=== PATIENT | male | born 1990 | race American Indian/Alaskan Native ===

== ENCOUNTER 2017-06-25 22:44 | Emergency (ER) | payer MEDICAID ==
[2017-06-25 22:52] VITALS: BP 103/66
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
== END 2017-06-26 03:05 | disposition home or self-care (01) ==
LOC: ED 22:44
DX: S00.93XA Contusion of unspecified part of head, initial encounter (principal); W22.8XXA Striking against or struck by other objects, initial encounter; Y93.01 Activity, walking, marching and hiking; Y99.8 Other external cause status; Y92.89 Other specified places as the place of occurrence of the external cause
CPT/HCPCS: 99282

== ENCOUNTER 2017-06-26 10:50 | Emergency (ER) | payer MEDICAID ==
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
== END 2017-06-26 11:18 | disposition home or self-care (01) ==
LOC: ED 10:50
DX: R46.89 Other symptoms and signs involving appearance and behavior (principal)
CPT/HCPCS: 99282

== ENCOUNTER 2017-06-26 21:48 | Emergency (ER) | payer MEDICAID | END 2017-06-26 21:49 | disposition left against medical advice (07) | LOC: ED 21:48 | DX: H53.8 Other visual disturbances (principal); Z53.21 Procedure and treatment not carried out due to patient leaving prior to being seen by health care provider ==

== ENCOUNTER 2017-07-01 23:49 | Emergency (ER) | payer MEDICAID ==
[2017-07-02 07:30] VITALS: BP 107/68
== END 2017-07-02 23:50 | disposition left against medical advice (07) ==
LOC: ED 23:49
DX: R44.3 Hallucinations, unspecified (principal); Z53.21 Procedure and treatment not carried out due to patient leaving prior to being seen by health care provider

== ENCOUNTER 2017-07-03 01:02 | Emergency (ER) | payer MEDICAID | END 2017-07-03 01:03 | disposition left against medical advice (07) | LOC: ED 01:02 | DX: Z00.8 Encounter for other general examination (principal); Z53.21 Procedure and treatment not carried out due to patient leaving prior to being seen by health care provider ==

== ENCOUNTER 2017-07-05 01:09 | Emergency (ER) | payer MEDICAID ==
[2017-07-05 03:09] VITALS: BP 117/81
== END 2017-07-05 07:41 | disposition left against medical advice (07) ==
LOC: ED 01:09
DX: M79.642 Pain in left hand (principal); Z53.21 Procedure and treatment not carried out due to patient leaving prior to being seen by health care provider

== ENCOUNTER 2017-07-07 22:48 | Emergency (ER) | payer MEDICAID ==
[2017-07-07 23:17] VITALS: BP 121/77
--- NOTE | 2017-07-08 01:38 | Emergency Department Report ---
ED Back Pain/Injury HPI - General Chief Complaint: Back Pain/Injury Stated Complaint: BACK PAIN Time Seen by Provider: 07/08/17 01:32 Source: patient Limitations: No Limitations - History of Present Illness Initial Comments: Patient is a 26-year-old -Nigerian male states he strained his back last night bilaterally lower quickly in bed pain is 4/10 10 spasm right lateral back there is no numbness no tingling no paresthesia pain is reproducible by palpation and movement there is no swelling no ecchymosis patient states "its just strained" there is no loss of decrease in bowel or bladder function MD Complaint: back injury Onset/Timin -: days(s) Similar Symptoms Previously: Yes Place: home Radiation: none Severity: mild Severity scale (0 -10): 2 Quality: aching, other ("soreness") Consistency: intermittent Improves With: none Worsens With: movement Context: turning/twisting Associated Symptoms: denies: confusion, weakness, chest pain, numbness, difficulty walking, cough, difficulty urinating, incontinence, fever/chills, constipation, headaches, abdominal pain, loss of appetite, malaise, nausea/ vomiting, rash, seizure, shortness of breath, syncope - Related Data Previous Rx's Medication Instructions Recorded Last Taken Type Ibuprofen [Motrin] 600 mg PO Q8H PRN #20 tablet 06/26/17 Unknown Rx Cyclobenzaprine [Flexeril] 10 mg PO BID PRN #20 tablet 07/08/17 Unknown Rx Menthol/Camphor [[place] 1 applic TP TID PRN #1 tube 07/08/17 Unknown Rx Ointment] Naproxen [Naprosyn] 500 mg PO BID PRN #30 tablet 07/08/17 Unknown Rx Allergies Allergy/AdvReac Type Severity Reaction Status Date / Time No Known Allergies Allergy Unverified 06/25/17 22:50 ED Review of Systems ROS: Stated complaint: BACK PAIN Other details as noted in HPI Constitutional: denies: chills, fever Eyes: denies: eye pain, eye discharge, vision change ENT: denies: ear pain, throat pain Respiratory: denies: cough, shortness of breath, wheezing Cardiovascular: denies: chest pain, palpitations Endocrine: no symptoms reported Gastrointestinal: denies: abdominal pain, nausea, diarrhea Genitourinary: denies: urgency, dysuria Musculoskeletal: back pain. denies: joint swelling, arthralgia, myalgia Skin: denies: rash, lesions Neurological: denies: headache, weakness, numbness, paresthesias, confusion, abnormal gait, vertigo Psychiatric: denies: anxiety, depression Hematological/Lymphatic: denies: easy bleeding, easy bruising ED Past Medical Hx - Past Medical History Previous Medical History?: Yes Hx Psychiatric Treatment: Yes - Surgical History Past Surgical History?: No - Social History Smoking Status: Never Smoker Substance Use Type: None - Medications Home Medications: Home Medications Medication Instructions Recorded Confirmed Last Taken Type Ibuprofen [Motrin] 600 mg PO Q8H PRN #20 tablet 06/26/17 Unknown Rx Cyclobenzaprine [Flexeril] 10 mg PO BID PRN #20 tablet 07/08/17 Unknown Rx Menthol/Camphor [[place] 1 applic TP TID PRN #1 tube 07/08/17 Unknown Rx Ointment] Naproxen [Naprosyn] 500 mg PO BID PRN #30 tablet 07/08/17 Unknown Rx ED Physical Exam - General Limitations: No Limitations General appearance: alert, in no apparent distress - Head Head exam: Present: atraumatic, normocephalic - Eye Eye exam: Present: normal appearance - ENT ENT exam: Present: mucous membranes moist - Neck Neck exam: Present: normal inspection - Respiratory Respiratory exam: Present: normal lung sounds bilaterally. Absent: respiratory distress, wheezes, stridor, chest wall tenderness - Cardiovascular Cardiovascular Exam: Present: regular rate, normal rhythm, normal heart sounds. Absent: systolic murmur, diastolic murmur, rubs, gallop - GI/Abdominal GI/Abdominal exam: Present: soft, normal bowel sounds. Absent: distended, tenderness, guarding, rebound, rigid, organomegaly, mass, bruit, pulsatile mass , hernia - Rectal Rectal exam: Present: deferred - Extremities Exam Extremities exam: Present: normal inspection, full ROM, normal capillary refill. Absent: tenderness, pedal edema, joint swelling, calf tenderness - Back Exam Back exam: Present: normal inspection, tenderness, muscle spasm. Absent: CVA tenderness (R), CVA tenderness (L), paraspinal tenderness, vertebral tenderness , rash noted - Expanded Back Exam Expanded Back exam: Absent: saddle anesthesia Back exam: Negative Straight Leg Raising: Left, Right - Neurological Exam Neurological exam: Present: alert, oriented X3, CN II-XII intact, normal gait, reflexes normal - Expanded Neurological Exam Expanded Patient oriented to: Present: person, place, time Speech: Present: fluid speech Cranial nerves: EOM's Intact: Normal, Gag Reflex: Normal, Tongue Deviation: Normal, Nystagmus: Normal, Facial Sensation: Normal Cerebellar function: Finger to Nose: Normal, Heel to Carver: Normal, Romberg: Normal Sensory exam: Upper Extremity Light Touch: Normal, Upper Extremity Temperature: Normal, UE 2 Point Discrimination: Normal, Lower Extremity Light Touch: Normal, Lower Extremity Temperature: Normal, LE 2 Point Discrimination: Normal Motor strength exam: RUE: 5, LUE: 5, RLE: 5, LLE: 5 DTR: bicep (R): 2+, bicep (L): 2+, tricep (R): 2+, tricep (L): 2+, knee (R): 2+ , knee (L): 2+, ankle (R): 2+, ankle (L): 2+ Best Eye Response ([place]): (4) open spontaneously Best Motor Response (Dony): (6) obeys commands Best Verbal Response ([place]): (5) oriented Dony Total: 15 - Psychiatric Psychiatric exam: Present: normal affect, normal mood - Skin Skin exam: Present: warm, dry, intact, normal color. Absent: rash ED Course Vital Signs 07/07/17 23:13 Temperature 98.4 F Pulse Rate 75 Respiratory 17 Rate Blood Pressure 121/77 O2 Sat by Pulse 99 Oximetry ED Medical Decision Making - Medical Decision Making there is no posterior vertebral point tenderness no swelling no deformity no ecchymosis , mild right lateral thoracic pain to deep palpation plan: nsaid muscler relaxant moist heat therapy follow up with pcp in 2-3 days pt verbalized agreement and understanding of same. Critical care attestation.: If time is entered above; I have spent that time in minutes in the direct care of this critically ill patient, excluding procedure time. ED Disposition Clinical Impression: Thoracic myofascial strain Qualifiers: Encounter type: initial encounter Qualified Code(s): S29.019A - Strain of muscle and tendon of unspecified wall of thorax, initial encounter Disposition: TO HOME OR SELFCARE Is pt being admited?: No Does the pt Need Aspirin: No Condition: Good Instructions: Muscle Strain (ED) Prescriptions: Cyclobenzaprine [Flexeril] 10 mg PO BID PRN #20 tablet PRN Reason: Muscle Spasm Menthol/Camphor [[place] Ointment] 1 applic TP TID PRN #1 tube PRN Reason: Pain Naproxen [Naprosyn] 500 mg PO BID PRN #30 tablet PRN Reason: Pain , Severe (7-10) Referrals: [facility] [Outside] - 3-5 Days Forms: Work/School Release Form(ED) Time of Disposition: 01:40
== END 2017-07-08 01:51 | disposition home or self-care (01) ==
LOC: ED 22:48
DX: S29.019A Strain of muscle and tendon of unspecified wall of thorax, initial encounter (principal); X50.1XXA Overexertion from prolonged static or awkward postures, initial encounter; Y93.89 Activity, other specified; Y99.8 Other external cause status; Y92.009 Unspecified place in unspecified non-institutional (private) residence as the place of occurrence of the external cause
CPT/HCPCS: 99282

== ENCOUNTER 2017-07-08 21:35 | Emergency (ER) | payer MEDICAID ==
[2017-07-08 22:01] VITALS: BP 107/59
== END 2017-07-09 00:50 | disposition left against medical advice (07) ==
LOC: ED 21:35
DX: R50.9 Fever, unspecified (principal); Z53.21 Procedure and treatment not carried out due to patient leaving prior to being seen by health care provider

== ENCOUNTER 2017-07-12 03:30 | Emergency (ER) | payer MEDICAID | END 2017-07-12 04:00 | disposition left against medical advice (07) | LOC: ED 03:30 | DX: Z00.8 Encounter for other general examination (principal); Z53.21 Procedure and treatment not carried out due to patient leaving prior to being seen by health care provider ==

== ENCOUNTER 2017-07-12 07:38 | Emergency (ER) | payer MEDICAID ==
[2017-07-12 07:51] VITALS: BP 114/67
[2017-07-12 08:12] LABS: Basophils % (Auto) 0.5 % (0.0-1.8); Eosinophils # (Auto) 0.3 K/mm3 (0.0-0.4); Eosinophils % (Auto) 4.3 % (0.0-4.3); Hematocrit 44.2 % (35.5-45.6); Hemoglobin 14.9 gm/dl (11.8-15.2); Lymphocytes # (Auto) 2.7 K/mm3 (1.2-5.4); Lymphocytes % (Auto) 36.1 % (13.4-35.0); Mean Corpuscular HGB Conc 34 % (32-34); Mean Corpuscular Hemoglobin 33 pg (28-32); Mean Corpuscular Volume 97 fl (84-94); Monocytes # (Auto) 0.6 K/mm3 (0.0-0.8); Monocytes % (Auto) 8.5 % (0.0-7.3); Platelet Count 170 K/mm3 (140-440); Red Blood Count 4.55 M/mm3 (3.65-5.03); Red Cell Distribution Width 13.5 % (13.2-15.2)
[2017-07-12 08:30] LABS: BUN/Creatinine Ratio 13; Blood Urea Nitrogen 10 mg/dL (9-20); Calcium 9.3 mg/dL (8.4-10.2); Hemolysis Index 25
[2017-07-12 13:28] LABS: Bilirubin,Urine NEG (Negative); Blood,Urine NEG (Negative); Color,Urine Yellow (Yellow); Mucus,Urine FEW /HPF; Protein,Urine <15 mg/dL mg/dL (Negative)
--- NOTE | 2017-07-12 13:41 | Emergency Department Report ---
ED Psych HPI - General Chief Complaint: Psych Stated Complaint: MH EVAL Time Seen by Provider: 07/12/17 11:36 Source: patient, old records reviewed (recent and frequent ed visits) Mode of arrival: Ambulatory Limitations: No Limitations - History of Present Illness Initial Comments: 26-year-old male with a past medical history schizophrenia presents to the hospital complaining of auditory and visual hallucinations and mood swings. He denies physical pain. Denies suicidal or homicidal ideation. Noncompliant with medications 1 month. - Related Data Previous Rx's Medication Instructions Recorded Last Taken Type Ibuprofen [Motrin] 600 mg PO Q8H PRN #20 tablet 06/26/17 Unknown Rx Cyclobenzaprine [Flexeril] 10 mg PO BID PRN #20 tablet 07/08/17 Unknown Rx Menthol/Camphor [[place] [employer] 1 applic TP TID PRN #1 tube 07/08/17 Unknown Rx Ointment] Naproxen [Naprosyn] 500 mg PO BID PRN #30 tablet 07/08/17 Unknown Rx Allergies Allergy/AdvReac Type Severity Reaction Status Date / Time No Known Allergies Allergy Unverified 06/25/17 22:50 ED Review of Systems ROS: Stated complaint: MH EVAL Other details as noted in HPI Comment: All other systems reviewed and negative ED Past Medical Hx - Past Medical History Previous Medical History?: No Hx Psychiatric Treatment: Yes (psychosis) - Surgical History Past Surgical History?: No - Social History Smoking Status: Current Some Day Smoker - Medications Home Medications: Home Medications Medication Instructions Recorded Confirmed Last Taken Type Ibuprofen [Motrin] 600 mg PO Q8H PRN #20 tablet 06/26/17 Unknown Rx Cyclobenzaprine [Flexeril] 10 mg PO BID PRN #20 tablet 07/08/17 Unknown Rx Menthol/Camphor [[place] [employer] 1 applic TP TID PRN #1 tube 07/08/17 Unknown Rx Ointment] Naproxen [Naprosyn] 500 mg PO BID PRN #30 tablet 07/08/17 Unknown Rx ED Physical Exam - General Limitations: No Limitations - Other Other exam information: General: No limitations, patient is alert in no acute distress Head exam: Atraumatic, normocephalic Eyes exam: Normal appearance ENT: Moist mucous membrane, normal oropharynx Neck exam: Normal inspection, full range of motion, no meningismus nontender Respiratory exam: Clear to auscultation bilateral, no wheezes, rales, crackles Cardiovascular: Normal rate and rhythm, normal heart sounds Abdomen: Soft, nondistended, and nontender, with normal bowel sounds, no rebound, or guarding Extremity: Full range of motion normal inspection no deformity Back: Normal Inspection, full range of motion, no tenderness Neurologic: Alert, oriented x3, cranial nerves intact, no motor or sensory deficit Psychiatric: normal affect, normal mood Skin: Warm, dry, intact ED Course Vital Signs 07/12/17 07:43 Temperature 97.9 F Pulse Rate 67 Respiratory 16 Rate Blood Pressure 114/67 Blood Pressure 114/67 [Right] O2 Sat by Pulse 94 Oximetry ED Medical Decision Making - Lab Data Result diagrams: 07/12/17 08:01 07/12/17 08:01 Lab Results 07/12/17 07/12/17 07/12/17 Range/Units 07:59 08:01 08:01 WBC (4.5-11.0) K/mm3 RBC (3.65-5.03) M/mm3 Hgb (11.8-15.2) gm/dl Hct (35.5-45.6) % MCV (84-94) fl MCH (28-32) pg MCHC (32-34) % RDW (13.2-15.2) % Plt Count (140-440) K/mm3 Lymph % (Auto) (13.4-35.0) % [place] % (Auto) (0.0-7.3) % Eos % (Auto) (0.0-4.3) % Baso % (Auto) (0.0-1.8) % Lymph # (1.2-5.4) K/mm3 [place] # (0.0-0.8) K/mm3 Eos # (0.0-0.4) K/mm3 Baso # (0.0-0.1) K/mm3 Seg Neutrophils % (40.0-70.0) % Seg Neutrophils # (1.8-7.7) K/mm3 Sodium 140 (137-145) mmol/L Potassium 4.4 (3.6-5.0) mmol/L Chloride 103.2 (98-107) mmol/L Carbon Dioxide 30 (22-30) mmol/L Anion Gap 11 mmol/L BUN 10 (9-20) mg/dL Creatinine 0.8 (0.8-1.5) mg/dL Estimated GFR > 60 ml/min BUN/Creatinine Ratio 13 % Glucose 100 (75-100) mg/dL Calcium 9.3 (8.4-10.2) mg/dL Urine Color (Yellow) Urine Turbidity (Clear) Urine pH (5.0-7.0) Ur Specific [place] (1.003-1.030) Urine Protein (Negative) mg/dL Urine Glucose (UA) (Negative) mg/dL Urine Ketones (Negative) mg/dL Urine Blood (Negative) Urine Nitrite (Negative) Urine Bilirubin (Negative) Urine Urobilinogen (<2.0) mg/dL Ur Leukocyte Esterase (Negative) Urine WBC (Auto) (0.0-6.0) /HPF Urine RBC (Auto) (0.0-6.0) /HPF Urine Mucus /HPF Salicylates < 0.3 L (2.8-20.0) mg/dL Acetaminophen < 5.0 L (10.0-30.0) ug/mL Plasma/Serum Alcohol (0-0.07) % 07/12/17 07/12/17 07/12/17 Range/Units 08:01 08:01 11:45 WBC 7.6 (4.5-11.0) K/mm3 RBC 4.55 (3.65-5.03) M/mm3 Hgb 14.9 (11.8-15.2) gm/dl Hct 44.2 (35.5-45.6) % MCV 97 H (84-94) fl MCH 33 H (28-32) pg MCHC 34 (32-34) % RDW 13.5 (13.2-15.2) % Plt Count 170 (140-440) K/mm3 Lymph % (Auto) 36.1 H (13.4-35.0) % [place] % (Auto) 8.5 H (0.0-7.3) % Eos % (Auto) 4.3 (0.0-4.3) % Baso % (Auto) 0.5 (0.0-1.8) % Lymph # 2.7 (1.2-5.4) K/mm3 [place] # 0.6 (0.0-0.8) K/mm3 Eos # 0.3 (0.0-0.4) K/mm3 Baso # 0.0 (0.0-0.1) K/mm3 Seg Neutrophils % 50.6 (40.0-70.0) % Seg Neutrophils # 3.8 (1.8-7.7) K/mm3 Sodium (137-145) mmol/L Potassium (3.6-5.0) mmol/L Chloride (98-107) mmol/L Carbon Dioxide (22-30) mmol/L Anion Gap mmol/L BUN (9-20) mg/dL Creatinine (0.8-1.5) mg/dL Estimated GFR ml/min BUN/Creatinine Ratio % Glucose (75-100) mg/dL Calcium (8.4-10.2) mg/dL Urine Color Yellow (Yellow) Urine Turbidity Clear (Clear) Urine pH 6.0 (5.0-7.0) Ur Specific [place] 1.019 (1.003-1.030) Urine Protein <15 mg/dl (Negative) mg/dL Urine Glucose (UA) Neg (Negative) mg/dL Urine Ketones Neg (Negative) mg/dL Urine Blood Neg (Negative) Urine Nitrite Neg (Negative) Urine Bilirubin Neg (Negative) Urine Urobilinogen 2.0 (<2.0) mg/dL Ur Leukocyte Esterase Neg (Negative) Urine WBC (Auto) 1.0 (0.0-6.0) /HPF Urine RBC (Auto) 3.0 (0.0-6.0) /HPF Urine Mucus Few /HPF Salicylates (2.8-20.0) mg/dL Acetaminophen (10.0-30.0) ug/mL Plasma/Serum Alcohol < 0.01 (0-0.07) % - Medical Decision Making Patient has chronic schizophrenia with psychosis Chronically noncompliant with medication Frequent ER visits for variety of complaints and not following up Patient does not have suicidal homicidal ideation and therefore does not meet criteria for 1013 His thoughts are organized Evaluated by ASHIA Ho who is very familiar with the pt. Agrees pt does not meet 1013 criteria f/u will be encouraged. - Differential Diagnosis psychosis, schizophrenia Critical Care Time: No Critical care attestation.: If time is entered above; I have spent that time in minutes in the direct care of this critically ill patient, excluding procedure time. ED Disposition Clinical Impression: Schizophrenia, Psychosis, Noncompliance with medication regimen Disposition: DC-01 TO HOME OR SELFCARE Is pt being admited?: No Does the pt Need Aspirin: No Condition: Stable Instructions: Schizophrenia (ED) Additional Instructions: Follow up with your psychiatrist at [facility] for further mental health evaluation and treatment [facility] [[facility] - 2-3 Days Time of Disposition: 13:54
[2017-07-12 15:36] LABS: Amphetamine Screen,Urine PRESUMPTIVE NEGATIVE; Benzodiazepines Screen,Urine PRESUMPTIVE NEGATIVE; Cannabinoid Screen,Urine PRESUMPTIVE NEGATIVE; Cocaine Screen,Urine PRESUMPTIVE NEGATIVE; Methadone Screen,Urine PRESUMPTIVE NEGATIVE; Opiate Screen,Urine PRESUMPTIVE NEGATIVE
== END 2017-07-12 14:29 | disposition home or self-care (01) ==
LOC: ED 07:38
DX: F20.9 Schizophrenia, unspecified (principal); F29 Unspecified psychosis not due to a substance or known physiological condition; Z91.14 Patient's other noncompliance with medication regimen; F17.200 Nicotine dependence, unspecified, uncomplicated
CPT/HCPCS: 36415; 80048; 80307; 81001; 85025; 99284; G0480; 80320

== ENCOUNTER 2017-07-14 23:33 | Emergency (ER) | payer MEDICAID | END 2017-07-15 01:05 | disposition left against medical advice (07) | LOC: ED 23:33 | DX: R42 Dizziness and giddiness (principal); Z53.21 Procedure and treatment not carried out due to patient leaving prior to being seen by health care provider ==

== ENCOUNTER 2019-02-02 17:00 | Emergency (ER) | payer MEDICAID ==
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
[2019-02-03] MEDS ORDERED: IBUPROFEN 600 MG TAB PO ONE (00:20)
[2019-02-03] MEDS ORDERED: ACETAMINOPHEN 500 MG TAB PO ONE (00:20)
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
[2019-02-03 02:28] VITALS: BP 103/61
== END 2019-02-03 02:27 | disposition home or self-care (01) ==
LOC: ED 17:00
DX: S83.91XA Sprain of unspecified site of right knee, initial encounter (principal); M54.2 Cervicalgia; M62.830 Muscle spasm of back; F20.0 Paranoid schizophrenia; F17.200 Nicotine dependence, unspecified, uncomplicated; Z79.1 Long term (current) use of non-steroidal anti-inflammatories (NSAID); Z79.899 Other long term (current) drug therapy; V09.9XXA Pedestrian injured in unspecified transport accident, initial encounter; Y93.89 Activity, other specified; Y92.488 Other paved roadways as the place of occurrence of the external cause; Y99.8 Other external cause status
CPT/HCPCS: 72040; 72100; 99283

== ENCOUNTER 2019-08-06 05:06 | Emergency (ER) | payer MEDICAID ==
[2019-08-06 05:27] VITALS: BP 127/86
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
== END 2019-08-06 06:12 | disposition home or self-care (01) ==
LOC: ED 05:06
DX: F20.9 Schizophrenia, unspecified (principal); F17.200 Nicotine dependence, unspecified, uncomplicated; Z79.899 Other long term (current) drug therapy; Z04.6 Encounter for general psychiatric examination, requested by authority
CPT/HCPCS: 99283

== ENCOUNTER 2019-08-07 20:22 | Emergency (ER) | payer MEDICAID | END 2019-08-07 21:51 | LOC: ED 20:22 | DX: Z04.1 Encounter for examination and observation following transport accident (principal); Z53.21 Procedure and treatment not carried out due to patient leaving prior to being seen by health care provider ==

== ENCOUNTER 2019-08-08 01:45 | Emergency (ER) | payer MEDICAID, OTHER ==
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
== END 2019-08-08 05:03 | disposition left against medical advice (07) ==
LOC: ED 01:45
DX: G89.4 Chronic pain syndrome (principal)
CPT/HCPCS: 99281

== ENCOUNTER 2019-08-09 00:05 | Emergency (ER) | payer MEDICAID, OTHER ==
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
[2019-08-09] MEDS ORDERED: ACETAMINOPHEN 325 MG TAB PO ONE (02:09)
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
[2019-08-11 12:21] VITALS: BP 100/64
== END 2019-08-09 02:15 | disposition home or self-care (01) ==
LOC: ED 00:05
DX: S09.90XA Unspecified injury of head, initial encounter (principal); F23 Brief psychotic disorder; Z79.899 Other long term (current) drug therapy; X58.XXXA Exposure to other specified factors, initial encounter; Y93.89 Activity, other specified; Y92.89 Other specified places as the place of occurrence of the external cause; Y99.8 Other external cause status
CPT/HCPCS: 70450

== ENCOUNTER 2019-08-09 23:20 | Emergency (ER) | payer MEDICAID ==
[2019-08-10] MEDS ORDERED: AMOXICILLIN/K CLAV 875/125MG TAB PO ONE (00:16)
[2019-08-10] MEDS ORDERED: ACETAMINOPHEN 500 MG TAB PO ONE (00:16)
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
[2019-08-11 12:58] VITALS: BP 116/65
== END 2019-08-10 01:46 | disposition home or self-care (01) ==
LOC: ED 23:20
DX: K02.9 Dental caries, unspecified (principal); K04.7 Periapical abscess without sinus; K05.00 Acute gingivitis, plaque induced; Z79.899 Other long term (current) drug therapy
CPT/HCPCS: 99282

== ENCOUNTER 2020-07-25 00:54 | Emergency (ER) | payer MEDICAID ==
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
[2020-07-25 01:14] VITALS: BP 104/71
== END 2020-07-25 01:15 | disposition left against medical advice (07) ==
LOC: ED 00:54
DX: M54.6 Pain in thoracic spine (principal); G89.29 Other chronic pain; Z53.21 Procedure and treatment not carried out due to patient leaving prior to being seen by health care provider

== ENCOUNTER 2020-07-27 00:05 | Emergency (ER) | payer MEDICAID | END 2020-07-27 04:52 | disposition left against medical advice (07) | LOC: ED 00:05 | DX: R50.9 Fever, unspecified (principal); Z53.21 Procedure and treatment not carried out due to patient leaving prior to being seen by health care provider ==

== ENCOUNTER 2020-08-07 00:56 | Emergency (ER) | payer MEDICAID ==
[2020-08-07 04:27] VITALS: BP 115/50
--- NOTE | 2020-08-07 04:31 | Event Note ---
ED Screening Note Date of service: 08/07/20 Time: 04:31 ED Screening Note: Pt c/o abdominal pain x 1 month denies vomiting or stool changes pt is a poor historian This initial assessment/diagnostic orders/clinical plan/treatment(s) is/are subject to change based on patients health status, clinical progression and re- assessment by fellow clinical providers in the ED. Further treatment and workup at subsequent clinical providers discretion. Patient/guardian urged not to elope from the ED as their condition may be serious if not clinically assessed and managed. Initial orders include: labs
[2020-08-07 05:27] LABS: Basophils % (Auto) 0.6 % (0.0-1.8); Eosinophils # (Auto) 0.1 K/mm3 (0.0-0.4); Eosinophils % (Auto) 1.4 % (0.0-4.3); Hematocrit 44.5 % (35.5-45.6); Hemoglobin 14.8 gm/dl (11.8-15.2); Lymphocytes # (Auto) 2.9 K/mm3 (1.2-5.4); Lymphocytes % (Auto) 39.1 % (13.4-35.0); Mean Corpuscular HGB Conc 33 % (32-34); Mean Corpuscular Volume 100 fl (84-94); Monocytes # (Auto) 0.6 K/mm3 (0.0-0.8); Monocytes % (Auto) 8.6 % (0.0-7.3); Platelet Count 176 K/mm3 (140-440); Red Blood Count 4.47 M/mm3 (3.65-5.03); Red Cell Distribution Width 14.4 % (13.2-15.2)
[2020-08-07 05:49] LABS: Alanine Aminotransferase 11 units/L (7-56); Albumin 4.5 g/dL (3.9-5); BUN/Creatinine Ratio 13; Blood Urea Nitrogen 12 mg/dL (9-20); Calcium 9.3 mg/dL (8.4-10.2); Hemolysis Index 11
[2020-08-07 06:52] LABS: Bacteria,Urine 1+ /HPF (Negative); Bilirubin,Urine NEG (Negative); Blood,Urine NEG (Negative); Color,Urine Yellow (Yellow); Mucus,Urine 1+ /HPF
== END 2020-08-07 05:00 | disposition left against medical advice (07) ==
LOC: ED 00:56
DX: R10.9 Unspecified abdominal pain (principal); Z53.21 Procedure and treatment not carried out due to patient leaving prior to being seen by health care provider
CPT/HCPCS: 36415; 80053; 81001; 83690; 85025

== ENCOUNTER 2020-08-09 00:20 | Emergency (ER) | payer MEDICAID ==
[2020-08-09 01:58] VITALS: BP 128/74
== END 2020-08-09 07:00 ==
LOC: ED 00:20
DX: R10.9 Unspecified abdominal pain (principal); Z53.21 Procedure and treatment not carried out due to patient leaving prior to being seen by health care provider

== ENCOUNTER 2020-08-10 02:21 | Emergency (ER) | payer MEDICAID | END 2020-08-10 03:15 | disposition left against medical advice (07) | LOC: ED 02:21 | DX: R06.02 Shortness of breath (principal); Z53.21 Procedure and treatment not carried out due to patient leaving prior to being seen by health care provider ==

== ENCOUNTER 2020-08-10 22:12 | Emergency (ER) | payer MEDICAID ==
[2020-08-10 22:58] VITALS: BP 118/70
[2020-08-10 23:34] LABS: Basophils % (Auto) 0.6 % (0.0-1.8); Eosinophils # (Auto) 0.1 K/mm3 (0.0-0.4); Eosinophils % (Auto) 1.6 % (0.0-4.3); Hematocrit 40.6 % (35.5-45.6); Lymphocytes # (Auto) 2.1 K/mm3 (1.2-5.4); Lymphocytes % (Auto) 29.5 % (13.4-35.0); Mean Corpuscular HGB Conc 35 % (32-34); Mean Corpuscular Volume 98 fl (84-94); Monocytes # (Auto) 0.6 K/mm3 (0.0-0.8); Monocytes % (Auto) 8.9 % (0.0-7.3); Platelet Count 169 K/mm3 (140-440); Red Blood Count 4.12 M/mm3 (3.65-5.03); Red Cell Distribution Width 13.9 % (13.2-15.2)
[2020-08-10 23:54] LABS: Bilirubin,Urine NEG (Negative); Blood,Urine NEG (Negative); Color,Urine Yellow (Yellow); Mucus,Urine FEW /HPF; Protein,Urine <15 mg/dL mg/dL (Negative); WBC,Urine < 1.0 /HPF (0.0-6.0)
[2020-08-11] LABS: Alanine Aminotransferase 10 units/L (7-56); Albumin 4.2 g/dL (3.9-5); BUN/Creatinine Ratio 14; Blood Urea Nitrogen 13 mg/dL (9-20); Calcium 9.2 mg/dL (8.4-10.2); Hemolysis Index 14
== END 2020-08-11 01:50 | disposition left against medical advice (07) ==
LOC: ED 22:12
DX: R10.9 Unspecified abdominal pain (principal); Z53.21 Procedure and treatment not carried out due to patient leaving prior to being seen by health care provider
CPT/HCPCS: 36415; 80053; 81001; 85025

== ENCOUNTER 2020-08-12 03:17 | Emergency (ER) | payer MEDICAID ==
[2020-08-12 03:37] VITALS: BP 107/75
== END 2020-08-12 04:30 | disposition left against medical advice (07) ==
LOC: ED 03:17
DX: R10.9 Unspecified abdominal pain (principal); Z53.21 Procedure and treatment not carried out due to patient leaving prior to being seen by health care provider

== ENCOUNTER 2020-08-16 01:15 | Emergency (ER) | payer MEDICAID | END 2020-08-16 01:30 | disposition left against medical advice (07) | LOC: ED 01:15 ==

== ENCOUNTER 2020-08-17 05:40 | Emergency (ER) | payer MEDICAID | END 2020-08-17 07:20 | disposition left against medical advice (07) | LOC: ED 05:40 ==

== ENCOUNTER 2020-08-26 04:16 | Emergency (ER) | payer MEDICAID | END 2020-08-26 04:30 | disposition left against medical advice (07) | LOC: ED 04:16 ==

== ENCOUNTER 2020-08-27 00:18 | Emergency (ER) | payer MEDICAID | END 2020-08-27 00:49 | disposition left against medical advice (07) | LOC: ED 00:18 ==

== ENCOUNTER 2020-08-28 01:06 | Emergency (ER) | payer MEDICAID | END 2020-08-28 02:00 | disposition left against medical advice (07) | LOC: ED 01:06 | DX: R50.9 Fever, unspecified (principal); Z53.21 Procedure and treatment not carried out due to patient leaving prior to being seen by health care provider ==

== ENCOUNTER 2020-09-05 02:10 | Emergency (ER) | payer MEDICAID | END 2020-09-05 05:02 | disposition left against medical advice (07) | LOC: ED 02:10 | DX: G43.909 Migraine, unspecified, not intractable, without status migrainosus (principal); Z53.21 Procedure and treatment not carried out due to patient leaving prior to being seen by health care provider ==

== ENCOUNTER 2020-09-06 21:34 | Emergency (ER) | payer MEDICAID | END 2020-09-06 23:00 | disposition left against medical advice (07) | LOC: ED 21:34 | DX: Z53.21 Procedure and treatment not carried out due to patient leaving prior to being seen by health care provider (principal) ==

== ENCOUNTER 2020-09-13 00:34 | Emergency (ER) | payer MEDICAID | END 2020-09-13 01:30 | disposition left against medical advice (07) | LOC: ED 00:34 ==

== ENCOUNTER 2020-09-14 00:29 | Emergency (ER) | payer MEDICAID | END 2020-09-14 01:30 | disposition left against medical advice (07) | LOC: ED 00:29 ==

== ENCOUNTER 2020-09-15 01:38 | Emergency (ER) | payer MEDICAID ==
[2020-09-15 01:59] VITALS: BP 102/79
== END 2020-09-15 03:50 | disposition left against medical advice (07) ==
LOC: ED 01:38
DX: M79.603 Pain in arm, unspecified (principal); Z53.21 Procedure and treatment not carried out due to patient leaving prior to being seen by health care provider

== ENCOUNTER 2020-09-16 00:20 | Emergency (ER) | payer MEDICAID | END 2020-09-16 00:25 | disposition left against medical advice (07) | LOC: ED 00:20 | DX: I95.9 Hypotension, unspecified (principal); Z53.21 Procedure and treatment not carried out due to patient leaving prior to being seen by health care provider ==

== ENCOUNTER 2020-09-17 01:29 | Emergency (ER) | payer MEDICAID | END 2020-09-17 01:34 | disposition left against medical advice (07) | LOC: ED 01:29 | DX: R07.89 Other chest pain (principal); Z53.21 Procedure and treatment not carried out due to patient leaving prior to being seen by health care provider ==

== ENCOUNTER 2020-09-18 10:00 | Emergency (ER) | payer MEDICAID | END 2020-09-18 11:15 | disposition left against medical advice (07) | LOC: ED 10:00 | DX: R50.9 Fever, unspecified (principal); Z53.21 Procedure and treatment not carried out due to patient leaving prior to being seen by health care provider ==

== ENCOUNTER 2020-09-18 23:35 | Emergency (ER) | payer MEDICAID | END 2020-09-19 02:00 | disposition left against medical advice (07) | LOC: ED 23:35 | DX: R50.9 Fever, unspecified (principal); Z53.21 Procedure and treatment not carried out due to patient leaving prior to being seen by health care provider ==

== ENCOUNTER → 2020-09-21 03:25 | Emergency (ER) | payer MEDICAID | END | disposition left against medical advice (07) | LOC: ED 03:25 | DX: Z53.21 Procedure and treatment not carried out due to patient leaving prior to being seen by health care provider (principal) ==

== ENCOUNTER 2020-09-21 23:04 | Emergency (ER) | payer MEDICAID | END 2020-09-21 23:09 | disposition left against medical advice (07) | LOC: ED 23:04 ==

== ENCOUNTER 2020-09-23 00:52 | Emergency (ER) | payer MEDICAID | END 2020-09-23 02:26 | disposition left against medical advice (07) | LOC: ED 00:52 ==

== ENCOUNTER 2020-09-24 04:31 | Emergency (ER) | payer MEDICAID | END 2020-09-24 04:36 | disposition left against medical advice (07) | LOC: ED 04:31 ==

== ENCOUNTER 2020-09-26 08:01 | Emergency (ER) | payer MEDICAID ==
[2020-09-26 08:11] VITALS: BP 117/71
== END 2020-09-26 10:26 | disposition left against medical advice (07) ==
LOC: ED 08:01
DX: M25.541 Pain in joints of right hand (principal); M25.542 Pain in joints of left hand; Z53.21 Procedure and treatment not carried out due to patient leaving prior to being seen by health care provider

== ENCOUNTER 2020-09-27 02:59 | Emergency (ER) | payer MEDICAID | END 2020-09-27 03:30 | disposition left against medical advice (07) | LOC: ED 02:59 ==

== ENCOUNTER 2020-09-28 02:25 | Emergency (ER) | payer MEDICAID | END 2020-09-28 04:00 | disposition left against medical advice (07) | LOC: ED 02:25 | DX: M79.603 Pain in arm, unspecified (principal); Z53.21 Procedure and treatment not carried out due to patient leaving prior to being seen by health care provider ==

== ENCOUNTER 2020-10-02 00:21 | Emergency (ER) | payer MEDICAID ==
[2020-10-02 00:31] VITALS: BP 110/62
== END 2020-10-02 05:48 | disposition left against medical advice (07) ==
LOC: ED 00:21
DX: M25.569 Pain in unspecified knee (principal); Z53.21 Procedure and treatment not carried out due to patient leaving prior to being seen by health care provider

== ENCOUNTER 2020-10-05 00:38 | Emergency (ER) | payer MEDICAID | END 2020-10-05 01:00 | disposition left against medical advice (07) | LOC: ED 00:38 | DX: M79.10 Myalgia, unspecified site (principal); Z53.21 Procedure and treatment not carried out due to patient leaving prior to being seen by health care provider ==

== ENCOUNTER 2020-10-06 04:45 | Emergency (ER) | payer MEDICAID | END 2020-10-06 04:50 | disposition left against medical advice (07) | LOC: ED 04:45 | DX: H92.09 Otalgia, unspecified ear (principal); Z53.21 Procedure and treatment not carried out due to patient leaving prior to being seen by health care provider ==

== ENCOUNTER 2020-10-09 01:47 | Emergency (ER) | payer MEDICAID | END 2020-10-09 02:00 | LOC: ED 01:47 | DX: Z00.8 Encounter for other general examination (principal); Z53.21 Procedure and treatment not carried out due to patient leaving prior to being seen by health care provider ==

== ENCOUNTER 2020-10-15 00:45 | Emergency (ER) | payer MEDICAID | END 2020-10-15 00:50 | disposition left against medical advice (07) | LOC: ED 00:45 | DX: R50.9 Fever, unspecified (principal); Z53.21 Procedure and treatment not carried out due to patient leaving prior to being seen by health care provider ==

== ENCOUNTER 2020-10-17 01:03 | Emergency (ER) | payer MEDICAID | END 2020-10-17 02:00 | disposition left against medical advice (07) | LOC: ED 01:03 | DX: Z00.8 Encounter for other general examination (principal); Z53.21 Procedure and treatment not carried out due to patient leaving prior to being seen by health care provider ==

== ENCOUNTER 2020-10-22 02:51 | Emergency (ER) | payer MEDICAID | END 2020-10-22 02:56 | disposition left against medical advice (07) | LOC: ED 02:51 | DX: R25.2 Cramp and spasm (principal); Z53.21 Procedure and treatment not carried out due to patient leaving prior to being seen by health care provider ==

== ENCOUNTER 2020-10-23 02:24 | Emergency (ER) | payer MEDICAID | END 2020-10-23 05:15 | disposition left against medical advice (07) | LOC: ED 02:24 | DX: R50.9 Fever, unspecified (principal); Z53.21 Procedure and treatment not carried out due to patient leaving prior to being seen by health care provider ==

== ENCOUNTER 2020-12-15 01:34 | Emergency (ER) | payer MEDICAID ==
[2020-12-15 01:45] VITALS: BP 106/80
--- NOTE | 2020-12-15 02:35 | Emergency Department Report ---
ED General Adult HPI - General Chief complaint: Skin Rash Stated complaint: SKIN BURN (ALLERGIC) Time Seen by Provider: 12/15/20 01:49 Source: patient Mode of arrival: Ambulatory Limitations: No Limitations - History of Present Illness Initial comments: 30-year-old male patient presents emergency department with complaints of a pruritic rash to his feet starting yesterday. Patient suspects he may have come into contact with a toxic substance while sleeping on the ground outside. Patient has not applied any medication to the affected area. Patient has no known allergies. Patient is homeless. Denies fever, chills, purulent drainage, bleeding, paresthesias, numbness. Denies all other complaints at this time. - Related Data Previous Rx's Medication Instructions Recorded Last Taken Type Menthol/Camphor [[place] 1 applic TP TID PRN #1 tube 07/08/17 Unknown Rx Ointment] Ibuprofen [Ibuprofen 800] 800 mg PO TID PRN #30 tablet 05/12/18 Unknown Rx Ondansetron [Zofran Odt] 4 mg PO Q8HR PRN #12 tab.rapdis 05/12/18 Unknown Rx Cyclobenzaprine [Flexeril 10 MG 10 mg PO Q12H PRN #20 tablet 02/03/19 Unknown Rx TAB] Ibuprofen [Motrin 600 MG tab] 600 mg PO Q8H PRN #20 tablet 02/03/19 Unknown Rx Naproxen [Naprosyn] 500 mg PO BID PRN #30 tablet 08/10/19 Unknown Rx Penicillin V Potassium 500 mg PO Q6H #40 tablet 08/10/19 Unknown Rx Clotrimazole 1% [Lotrimin 1%] 1 applic TP BID 28 Days #1 tube 12/15/20 Unknown Rx Allergies Allergy/AdvReac Type Severity Reaction Status Date / Time No Known Allergies Allergy Verified 02/02/19 17:07 ED Review of Systems ROS: Stated complaint: SKIN BURN (ALLERGIC) Other details as noted in HPI Other: GENERAL: Negative for fever. CARDIOVASCULAR: Negative for chest pain. PULMONARY: Negative for shortness of breath. GASTROINTESTINAL: Negative for abdominal pain. MUSCULOSKELETAL: Negative for back pain. NEUROLOGICAL: Negative for headache. INTEGUMENTARY: Positive for rash. ED Past Medical Hx - Past Medical History Previous Medical History?: Yes Hx Psychiatric Treatment: Yes (psychosis) Additional medical history: Chronic Pain - Surgical History Past Surgical History?: No - Social History Smoking Status: Never Smoker Substance Use Type: None - Medications Home Medications: Home Medications Medication Instructions Recorded Confirmed Last Taken Type Menthol/Camphor [[place] 1 applic TP TID PRN #1 tube 07/08/17 Unknown Rx Ointment] Ibuprofen [Ibuprofen 800] 800 mg PO TID PRN #30 tablet 05/12/18 Unknown Rx Ondansetron [Zofran Odt] 4 mg PO Q8HR PRN #12 tab.rapdis 05/12/18 Unknown Rx Cyclobenzaprine [Flexeril 10 MG 10 mg PO Q12H PRN #20 tablet 02/03/19 Unknown Rx TAB] Ibuprofen [Motrin 600 MG tab] 600 mg PO Q8H PRN #20 tablet 02/03/19 Unknown Rx Naproxen [Naprosyn] 500 mg PO BID PRN #30 tablet 08/10/19 Unknown Rx Penicillin V Potassium 500 mg PO Q6H #40 tablet 08/10/19 Unknown Rx Clotrimazole 1% [Lotrimin 1%] 1 applic TP BID 28 Days #1 tube 12/15/20 Unknown Rx ED Physical Exam - General Limitations: No Limitations - Other Other exam information: General: Awake, appropriately interactive, no acute distress. Neck: Supple. Full range of motion intact. Cardiovascular: Normal peripheral perfusion. Pulmonary: No respiratory distress. Patient is speaking normally without use of accessory muscles. Skin: Dry, macerated, pruritic rash involving the interdigital webspaces of the toes on both feet. Neurological: No facial asymmetry. Speech is clear. Follows commands. Patient is alert and oriented. Musculoskeletal: Moves all four extremities spontaneously with normal range of motion. Psych: Cooperative. Appropriate mood and affect. ED Course Vital Signs 12/15/20 01:44 Temperature 98.2 F Pulse Rate 57 L Respiratory 16 Rate Blood Pressure 106/80 [Left] O2 Sat by Pulse 100 Oximetry ED Medical Decision Making - Medical Decision Making Patient presents to the emergency department with signs/symptoms consistent with tinea pedis. He is afebrile, hemodynamically stable, neurovascularly intact. No clinical indication for further diagnostic work-up on an emergent basis at this time. Patient will be discharged home with topical antifungal and referred to primary care provider for close outpatient follow-up. Patient expressed understanding and is agreeable to plan of care. Strict return precautions provided. History, exam, diagnostic testing, and current condition do not suggest worrisome pathology to warrant further testing, continued ED treatment, admission, or surgical evaluation at this point. Given the low probability of a significant medical illness, it would be more likely to result in harm than benefit to perform further testing at this stage. Discussed findings, presumptive diagnosis, need for follow-up and specific signs/symptoms that should prompt immediate return to the emergency department. Instructions were explained in detail to the patient in addition to giving written discharge information. Patient expressed understanding and was given the opportunity to ask questions, all of which were satisfactorily answered prior to discharge home. Critical care attestation.: If time is entered above; I have spent that time in minutes in the direct care of this critically ill patient, excluding procedure time. ED Disposition Clinical Impression: Tinea pedis Qualifiers: Laterality: bilateral Qualified Code(s): B35.3 - Tinea pedis Disposition: 01 HOME / SELF CARE / HOMELESS Is pt being admited?: No Does the pt Need Aspirin: No Condition: Stable Instructions: Athlete's Foot, [id number] Additional Instructions: Apply Clotrimazole to the affected area twice daily for 4 weeks. Keep feet clean and dry. Follow-up with primary care provider this week. Call tomorrow to schedule an appointment. See referral information below. Return to the emergency department immediately for new or worsening symptoms. Prescriptions: Clotrimazole 1% [Lotrimin 1%] 1 applic TP BID 28 Days #1 tube Referrals: YEN HILLS MD [Staff Physician] - 3-5 Days Time of Disposition: 02:35
== END 2020-12-15 02:52 | disposition home or self-care (01) ==
LOC: ED 01:34
DX: B35.3 Tinea pedis (principal); F29 Unspecified psychosis not due to a substance or known physiological condition; G89.29 Other chronic pain
CPT/HCPCS: 99281

== ENCOUNTER 2021-02-16 22:49 | Emergency (ER) | payer MEDICAID | END 2021-02-16 22:51 | disposition left against medical advice (07) | LOC: ED 22:49 | DX: S69.90XA Unspecified injury of unspecified wrist, hand and finger(s), initial encounter (principal); Z53.21 Procedure and treatment not carried out due to patient leaving prior to being seen by health care provider; X58.XXXA Exposure to other specified factors, initial encounter; Y93.89 Activity, other specified; Y92.89 Other specified places as the place of occurrence of the external cause; Y99.8 Other external cause status ==

== ENCOUNTER 2021-02-18 22:33 | Emergency (ER) | payer MEDICAID | END 2021-02-19 05:57 | LOC: ED 22:33 | DX: M79.645 Pain in left finger(s) (principal); Z53.21 Procedure and treatment not carried out due to patient leaving prior to being seen by health care provider ==

== ENCOUNTER 2021-04-21 08:07 | Emergency (ER) | payer MEDICAID ==
[2021-04-21 08:16] VITALS: BP 111/80
--- NOTE | 2021-04-21 08:43 | Emergency Department Report ---
Chief Complaint: Extremity Problem,Nontraumatic Stated Complaint: ARM SPRAIN FROM BLOOD WORK Time Seen by Provider: 04/21/21 08:36 - HPI History of Present Illness: 30-year-old -[place] male presents to the emergency room with no clear complaint. Patient reports that he had a tetanus shot done and he thinks he had dislocated his right shoulder. He states that he had fractured something in one of the x-ray results from 2019. States that he was seen at [facility] recently where they told him he needed tetanus. He reports he is not taking any medications. He denies any medical history. Review of chart shows that patient has schizophrenia psychosis. Patient denies any suicidal or homicidal ideation. Appears to be homeless as he is caring all of his bags with him. - Exam Vital Signs: Vital Signs 04/21/21 08:15 Temperature 97.6 F Pulse Rate 66 Respiratory 16 Rate Blood Pressure 111/80 [Right] O2 Sat by Pulse 98 Oximetry Physical Exam: General: Awake, appropriately interactive, no acute distress. Neck: Supple. Full range of motion intact. Cardiovascular: Normal peripheral perfusion. Pulmonary: No respiratory distress. Patient is speaking normally without use of accessory muscles. Skin: No apparent rashes or lesions. Neurological: No facial asymmetry. Speech is clear. Follows commands. Patient is alert and oriented. Talking tangentially Musculoskeletal: Full range of motion, no crepitus. No tenderness to palpate nonerythematous no edema test appreciated. Able to bear weight and ambulate without difficulty. Distal neurovascular and motor/sensory function is intact. Psych: Cooperative. Appropriate mood and affect. MSE screening note: Focused history and physical exam performed. Due to findings the following was ordered: ED Disposition for MSE Clinical Impression: Psychosis, Schizophrenia, Non-compliant patient Disposition: 01 HOME / SELF CARE / HOMELESS Is pt being admited?: No Does the pt Need Aspirin: No Condition: Stable Additional Instructions: Recommend to follow-up with mental health. I have listed their information below. Referrals: [facility] [Outside] - 3-5 Days Time of Disposition: 08:42
== END 2021-04-21 10:15 | disposition home or self-care (01) ==
LOC: ED 08:07
DX: F23 Brief psychotic disorder (principal)
CPT/HCPCS: 99282

== ENCOUNTER 2021-04-21 22:38 | Emergency (ER) | payer MEDICAID ==
[2021-04-22 03:26] VITALS: BP 114/73
--- NOTE | 2021-04-22 05:01 | Emergency Department Report ---
ED Headache HPI - General Chief Complaint: Back Pain/Injury Stated Complaint: BACK PAIN Source: patient Exam Limitations: no limitations - History of Present Illness Initial Comments: Patient is a 30-year-old -[place]in[place] male with a history of paranoid schizophrenia who presented to the ED with complaint of acute onset persistent headache for the last 1 week. Patient states that he has not taken any medications for the headache since the onset. Patient denies dizziness, syncope, nausea, vomiting, abdominal pain, traumatic injury or fever, chills, change in vision, neck pain, abdominal pain, back pain, numbness and tingling or weakness of upper and lower extremities bilaterally. Timing/Duration: 1 week Quality: moderate Head Injury Location: temporal Recent Head Trauma: no recent headache/trauma Modifying Factors: improves with: medication Associated Symptoms: denies symptoms. denies: confusion, facial pain, fever/chills, flushing, loss of consciousness, nausea/vomiting, nasal congestion, numbness in legs/feet, seizures, sinus infection, stiff neck Allergies/Adverse Reactions: Allergies No Known Allergies Allergy (Verified 02/02/19 17:07) Home Medications: Ambulatory Orders Menthol/Camphor [[place] Ointment] 1 applic TP TID PRN #1 tube 07/08/17 Ibuprofen [Ibuprofen 800] 800 mg PO TID PRN #30 tablet 05/12/18 Ondansetron [Zofran Odt] 4 mg PO Q8HR PRN #12 tab.rapdis 05/12/18 Cyclobenzaprine [Flexeril 10 MG TAB] 10 mg PO Q12H PRN #20 tablet 02/03/19 Ibuprofen [Motrin 600 MG tab] 600 mg PO Q8H PRN #20 tablet 02/03/19 Naproxen [Naprosyn] 500 mg PO BID PRN #30 tablet 08/10/19 Penicillin V Potassium 500 mg PO Q6H #40 tablet 08/10/19 Clotrimazole 1% [Lotrimin 1%] 1 applic TP BID 28 Days #1 tube 12/15/20 ED Review of Systems ROS: Stated complaint: BACK PAIN Other details as noted in HPI Constitutional: denies: chills, fever Eyes: denies: eye pain, eye discharge, vision change ENT: denies: ear pain, throat pain Respiratory: denies: cough, shortness of breath, wheezing Cardiovascular: denies: chest pain, palpitations Endocrine: no symptoms reported Gastrointestinal: denies: abdominal pain, nausea, diarrhea Genitourinary: denies: urgency, dysuria Musculoskeletal: denies: back pain, joint swelling, arthralgia Skin: denies: rash, lesions Neurological: headache. denies: weakness, paresthesias Psychiatric: anxiety. denies: depression Hematological/Lymphatic: denies: easy bleeding, easy bruising ED Past Medical Hx - Past Medical History Hx Psychiatric Treatment: Yes (psychosis) Additional medical history: Chronic Pain - Social History Smoking Status: Never Smoker Substance Use Type: None - Medications Home Medications: Home Medications Medication Instructions Recorded Confirmed Last Taken Type Menthol/Camphor [[place] 1 applic TP TID PRN #1 tube 07/08/17 Unknown Rx Ointment] Ibuprofen [Ibuprofen 800] 800 mg PO TID PRN #30 tablet 05/12/18 Unknown Rx Ondansetron [Zofran Odt] 4 mg PO Q8HR PRN #12 tab.rapdis 05/12/18 Unknown Rx Cyclobenzaprine [Flexeril 10 MG 10 mg PO Q12H PRN #20 tablet 02/03/19 Unknown Rx TAB] Ibuprofen [Motrin 600 MG tab] 600 mg PO Q8H PRN #20 tablet 02/03/19 Unknown Rx Naproxen [Naprosyn] 500 mg PO BID PRN #30 tablet 08/10/19 Unknown Rx Penicillin V Potassium 500 mg PO Q6H #40 tablet 08/10/19 Unknown Rx Clotrimazole 1% [Lotrimin 1%] 1 applic TP BID 28 Days #1 tube 12/15/20 Unknown Rx ED Physical Exam - General Limitations: No Limitations General appearance: alert, in no apparent distress - Head Head exam: Present: atraumatic, normocephalic, normal inspection - Eye Eye exam: Present: normal appearance, PERRL, EOMI Pupils: Present: normal accommodation - ENT ENT exam: Present: normal exam, normal orophraynx, mucous membranes moist, TM's normal bilaterally, normal external ear exam - Neck Neck exam: Present: normal inspection, full ROM - Respiratory Respiratory exam: Present: normal lung sounds bilaterally. Absent: respiratory distress, wheezes, rhonchi, stridor, chest wall tenderness, accessory muscle use, decreased breath sounds, prolonged expiratory - Cardiovascular Cardiovascular Exam: Present: regular rate, normal rhythm, normal heart sounds. Absent: systolic murmur, diastolic murmur, rubs, gallop - GI/Abdominal GI/Abdominal exam: Present: soft, normal bowel sounds. Absent: tenderness, guarding, rebound, hyperactive bowel sounds, hypoactive bowel sounds - Extremities Exam Extremities exam: Present: normal inspection, full ROM, normal capillary refill - Back Exam Back exam: Present: normal inspection, full ROM. Absent: tenderness, CVA tenderness (R), CVA tenderness (L), muscle spasm, paraspinal tenderness, vertebral tenderness - Neurological Exam Neurological exam: Present: alert, oriented X3, CN II-XII intact, normal gait, reflexes normal - Psychiatric Psychiatric exam: Present: normal affect, normal mood, anxious. Absent: homicidal ideation, suicidal ideation - Skin Skin exam: Present: warm, dry, intact, normal color. Absent: rash ED Course Vital Signs 04/22/21 03:19 Temperature 97.8 F Pulse Rate 82 Respiratory 18 Rate Blood Pressure 114/73 [Right] O2 Sat by Pulse 99 Oximetry ED Medical Decision Making - Medical Decision Making This is a 30-year-old -[place]in[place] male with a history of paranoid schizophrenia who presented to the ED with complaint of acute onset persistent headache for the last 1 week. Patient states that he has not taken any medications for the headache since the onset. In the ED, patient is alert and oriented x3 and is not in any distress. Patient was treated in the ED with Tylenol for headache. On reevaluation, patient felt better and was discharged home. Patient was advised to follow-up with his primary care physician in 5 to 7 days for reevaluation or take [id number] pain medications like Tylenol as needed for headache. Patient was otherwise advised return to the ED immediately if symptoms get worse. - Differential Diagnosis Tension headache; cluster headache; anxiety Critical care attestation.: If time is entered above; I have spent that time in minutes in the direct care of this critically ill patient, excluding procedure time. ED Disposition Clinical Impression: Tension type headache, unspecified Qualifiers: Headache chronicity pattern: unspecified pattern Intractability: not intractable Qualified Code(s): G44.209 - Tension-type headache, unspecified, not intractable Disposition: 01 HOME / SELF CARE / HOMELESS Is pt being admited?: No Does the pt Need Aspirin: No Condition: Stable Instructions: Tension Headache, Adult, Pozm-be-Upge Additional Instructions: Take [id number] pain medications like Tylenol as needed for headache, drink plenty of fluids and follow-up with your primary care physician in 5 to 7 days for reevaluation. Return to the ED immediately if symptoms get worse. Referrals: [facility] [Provider Group] - 3-5 Days Time of Disposition: 04:58 Print Language: MOHAWK
[2021-04-22] MEDS ORDERED: ACETAMINOPHEN 325 MG TAB PO ONE (05:02)
== END 2021-04-22 05:30 | disposition home or self-care (01) ==
LOC: ED 22:38
DX: G44.209 Tension-type headache, unspecified, not intractable (principal); F99 Mental disorder, not otherwise specified
CPT/HCPCS: 99282

== ENCOUNTER 2021-04-23 01:07 | Emergency (ER) | payer MEDICAID | END 2021-04-23 19:44 | disposition left against medical advice (07) | LOC: ED 01:07 | DX: R50.9 Fever, unspecified (principal); H57.10 Ocular pain, unspecified eye; R42 Dizziness and giddiness; Z53.21 Procedure and treatment not carried out due to patient leaving prior to being seen by health care provider ==

== ENCOUNTER 2021-04-24 05:33 | Emergency (ER) | payer MEDICAID | END 2021-04-26 04:10 | LOC: ED 05:33 | DX: H92.09 Otalgia, unspecified ear (principal); Z53.21 Procedure and treatment not carried out due to patient leaving prior to being seen by health care provider ==

== ENCOUNTER 2021-04-24 22:04 | Emergency (ER) | payer MEDICAID | END 2021-04-26 04:11 | LOC: ED 22:04 | DX: I10 Essential (primary) hypertension (principal); Z53.21 Procedure and treatment not carried out due to patient leaving prior to being seen by health care provider ==

== ENCOUNTER 2021-04-25 00:30 | Emergency (ER) | payer MEDICAID ==
[2021-04-25 01:35] VITALS: BP 115/78
--- NOTE | 2021-04-25 02:53 | Emergency Department Report ---
ED General Adult HPI - General Chief complaint: Earache Stated complaint: BLOOD PRESSURE/PAIN Time Seen by Provider: 04/25/21 01:37 Source: patient Mode of arrival: Ambulatory Limitations: No Limitations - Related Data Previous Rx's Medication Instructions Recorded Last Taken Type Menthol/Camphor [[place] 1 applic TP TID PRN #1 tube 07/08/17 Unknown Rx Ointment] Ibuprofen [Ibuprofen 800] 800 mg PO TID PRN #30 tablet 05/12/18 Unknown Rx Ondansetron [Zofran Odt] 4 mg PO Q8HR PRN #12 tab.rapdis 05/12/18 Unknown Rx Cyclobenzaprine [Flexeril 10 MG 10 mg PO Q12H PRN #20 tablet 02/03/19 Unknown Rx TAB] Ibuprofen [Motrin 600 MG tab] 600 mg PO Q8H PRN #20 tablet 02/03/19 Unknown Rx Naproxen [Naprosyn] 500 mg PO BID PRN #30 tablet 08/10/19 Unknown Rx Penicillin V Potassium 500 mg PO Q6H #40 tablet 08/10/19 Unknown Rx Clotrimazole 1% [Lotrimin 1%] 1 applic TP BID 28 Days #1 tube 12/15/20 Unknown Rx Allergies Allergy/AdvReac Type Severity Reaction Status Date / Time No Known Allergies Allergy Verified 02/02/19 17:07 ED Review of Systems ROS: Stated complaint: BLOOD PRESSURE/PAIN Other details as noted in HPI ED Past Medical Hx - Past Medical History Hx Psychiatric Treatment: Yes (psychosis) Additional medical history: Chronic Pain - Surgical History Past Surgical History?: No - Social History Smoking Status: Never Smoker Substance Use Type: None - Medications Home Medications: Home Medications Medication Instructions Recorded Confirmed Last Taken Type Menthol/Camphor [[place] 1 applic TP TID PRN #1 tube 07/08/17 Unknown Rx Ointment] Ibuprofen [Ibuprofen 800] 800 mg PO TID PRN #30 tablet 05/12/18 Unknown Rx Ondansetron [Zofran Odt] 4 mg PO Q8HR PRN #12 tab.rapdis 05/12/18 Unknown Rx Cyclobenzaprine [Flexeril 10 MG 10 mg PO Q12H PRN #20 tablet 02/03/19 Unknown Rx TAB] Ibuprofen [Motrin 600 MG tab] 600 mg PO Q8H PRN #20 tablet 02/03/19 Unknown Rx Naproxen [Naprosyn] 500 mg PO BID PRN #30 tablet 08/10/19 Unknown Rx Penicillin V Potassium 500 mg PO Q6H #40 tablet 08/10/19 Unknown Rx Clotrimazole 1% [Lotrimin 1%] 1 applic TP BID 28 Days #1 tube 12/15/20 Unknown Rx ED Physical Exam - General Limitations: No Limitations ED Course Vital Signs 04/25/21 01:33 Temperature 98.6 F Pulse Rate 65 Respiratory 18 Rate Blood Pressure 115/78 [Left] O2 Sat by Pulse 100 Oximetry Critical care attestation.: If time is entered above; I have spent that time in minutes in the direct care of this critically ill patient, excluding procedure time. ED Disposition Condition: Stable
== END 2021-04-25 02:53 | disposition left against medical advice (07) ==
LOC: ED 00:30
DX: I10 Essential (primary) hypertension (principal); Z53.21 Procedure and treatment not carried out due to patient leaving prior to being seen by health care provider

== ENCOUNTER 2021-05-09 23:26 | Emergency (ER) | payer MEDICAID | END 2021-05-10 00:30 | disposition left against medical advice (07) | LOC: ED 23:26 | DX: Z53.21 Procedure and treatment not carried out due to patient leaving prior to being seen by health care provider (principal) ==

== ENCOUNTER 2021-05-10 23:43 | Emergency (ER) | payer MEDICAID | END 2021-05-11 05:55 | disposition left against medical advice (07) | LOC: ED 23:43 | DX: Z00.00 Encounter for general adult medical examination without abnormal findings (principal); Z53.21 Procedure and treatment not carried out due to patient leaving prior to being seen by health care provider ==

== ENCOUNTER 2021-05-11 22:31 | Emergency (ER) | payer MEDICAID | END 2021-05-11 22:40 | disposition left against medical advice (07) | LOC: ED 22:31 | DX: S93.409A Sprain of unspecified ligament of unspecified ankle, initial encounter (principal); Z53.21 Procedure and treatment not carried out due to patient leaving prior to being seen by health care provider; X58.XXXA Exposure to other specified factors, initial encounter; Y93.89 Activity, other specified; Y92.89 Other specified places as the place of occurrence of the external cause; Y99.8 Other external cause status ==

== ENCOUNTER 2021-05-12 22:47 | Emergency (ER) | payer MEDICAID | END 2021-05-13 01:00 | disposition left against medical advice (07) | LOC: ED 22:47 | DX: S93.409A Sprain of unspecified ligament of unspecified ankle, initial encounter (principal); Z53.21 Procedure and treatment not carried out due to patient leaving prior to being seen by health care provider; X58.XXXA Exposure to other specified factors, initial encounter; Y93.89 Activity, other specified; Y92.89 Other specified places as the place of occurrence of the external cause; Y99.8 Other external cause status ==

== ENCOUNTER 2021-05-13 23:32 | Emergency (ER) | payer MEDICAID | END 2021-05-14 09:33 | disposition left against medical advice (07) | LOC: ED 23:32 | DX: J00 Acute nasopharyngitis [common cold] (principal); Z53.21 Procedure and treatment not carried out due to patient leaving prior to being seen by health care provider ==

== ENCOUNTER 2021-05-17 22:50 | Emergency (ER) | payer MEDICAID ==
[2021-05-18 02:07] VITALS: BP 112/72
== END 2021-05-18 09:09 | disposition left against medical advice (07) ==
LOC: ED 22:50
DX: R50.9 Fever, unspecified (principal); Z53.21 Procedure and treatment not carried out due to patient leaving prior to being seen by health care provider

== ENCOUNTER 2021-05-18 03:46 | Emergency (ER) | payer MEDICAID | END 2021-05-18 05:23 | LOC: ED 03:46 | DX: R05.9 Cough, unspecified (principal); J00 Acute nasopharyngitis [common cold]; Z53.21 Procedure and treatment not carried out due to patient leaving prior to being seen by health care provider ==

== ENCOUNTER 2021-05-19 21:16 | Emergency (ER) | payer MEDICAID | END 2021-05-20 06:47 | disposition left against medical advice (07) | LOC: ED 21:16 | DX: R50.9 Fever, unspecified (principal); Z53.21 Procedure and treatment not carried out due to patient leaving prior to being seen by health care provider ==

== ENCOUNTER 2021-05-20 23:36 | Emergency (ER) | payer MEDICAID | END 2021-05-21 05:47 | disposition left against medical advice (07) | LOC: ED 23:36 | DX: R42 Dizziness and giddiness (principal); Z53.21 Procedure and treatment not carried out due to patient leaving prior to being seen by health care provider ==

== ENCOUNTER 2021-05-23 04:33 | Emergency (ER) | payer MEDICAID | END 2021-05-23 05:17 | disposition left against medical advice (07) | LOC: ED 04:33 | DX: J00 Acute nasopharyngitis [common cold] (principal); Z53.21 Procedure and treatment not carried out due to patient leaving prior to being seen by health care provider ==

== ENCOUNTER 2021-05-24 00:15 | Emergency (ER) | payer MEDICAID | END 2021-05-24 03:20 | disposition left against medical advice (07) | LOC: ED 00:15 | DX: H53.8 Other visual disturbances (principal); Z53.21 Procedure and treatment not carried out due to patient leaving prior to being seen by health care provider ==

== ENCOUNTER 2021-05-25 23:20 | Emergency (ER) | payer MEDICAID | END 2021-05-26 04:54 | disposition left against medical advice (07) | LOC: ED 23:20 | DX: M79.604 Pain in right leg (principal); Z53.21 Procedure and treatment not carried out due to patient leaving prior to being seen by health care provider ==

== ENCOUNTER 2021-05-27 01:17 | Emergency (ER) | payer MEDICAID | END 2021-05-28 02:27 | LOC: ED 01:17 | DX: R51.9 Headache, unspecified (principal); Z53.21 Procedure and treatment not carried out due to patient leaving prior to being seen by health care provider ==

== ENCOUNTER 2021-05-28 01:54 | Emergency (ER) | payer MEDICAID | END 2021-05-28 02:30 | disposition left against medical advice (07) | LOC: ED 01:54 | DX: Z53.21 Procedure and treatment not carried out due to patient leaving prior to being seen by health care provider (principal) ==

== ENCOUNTER 2021-05-29 00:50 | Emergency (ER) | payer MEDICAID | END 2021-05-29 04:25 | disposition left against medical advice (07) | LOC: ED 00:50 | DX: J00 Acute nasopharyngitis [common cold] (principal); M79.10 Myalgia, unspecified site; Z53.21 Procedure and treatment not carried out due to patient leaving prior to being seen by health care provider ==

== ENCOUNTER 2021-06-07 23:52 | Emergency (ER) | payer MEDICAID ==
[2021-06-08 00:04] VITALS: BP 103/71
== END 2021-06-09 11:25 | disposition left against medical advice (07) ==
LOC: ED 23:52
DX: J00 Acute nasopharyngitis [common cold] (principal); Z53.21 Procedure and treatment not carried out due to patient leaving prior to being seen by health care provider

== ENCOUNTER 2021-06-12 01:40 | Emergency (ER) | payer MEDICAID | END 2021-06-12 03:30 | disposition left against medical advice (07) | LOC: ED 01:40 | DX: H93.19 Tinnitus, unspecified ear (principal); Z53.21 Procedure and treatment not carried out due to patient leaving prior to being seen by health care provider ==

== ENCOUNTER 2021-06-15 23:51 | Emergency (ER) | payer MEDICAID ==
[2021-06-16 00:03] VITALS: BP 97/65
== END 2021-06-16 00:10 | disposition home or self-care (01) ==
LOC: ED 23:51
DX: M25.521 Pain in right elbow (principal); Z53.21 Procedure and treatment not carried out due to patient leaving prior to being seen by health care provider

== ENCOUNTER 2021-09-07 00:14 | Emergency (ER) | payer MEDICAID | END 2021-09-07 01:48 | disposition left against medical advice (07) | LOC: ED 00:14 | DX: M79.673 Pain in unspecified foot (principal); Z53.21 Procedure and treatment not carried out due to patient leaving prior to being seen by health care provider ==

== ENCOUNTER 2021-09-07 23:44 | Emergency (ER) | payer MEDICAID ==
[2021-09-08 00:12] VITALS: BP 116/67
== END 2021-09-08 10:28 | disposition left against medical advice (07) ==
LOC: ED 23:44
DX: R06.02 Shortness of breath (principal); Z53.21 Procedure and treatment not carried out due to patient leaving prior to being seen by health care provider

== ENCOUNTER 2021-09-21 02:15 | Emergency (ER) | payer MEDICAID | END 2021-09-21 08:35 | disposition left against medical advice (07) | LOC: ED 02:15 | DX: T30.0 Burn of unspecified body region, unspecified degree (principal); Z53.21 Procedure and treatment not carried out due to patient leaving prior to being seen by health care provider ==

== ENCOUNTER 2021-09-22 22:42 | Emergency (ER) | payer MEDICAID ==
[2021-09-23 00:01] VITALS: BP 141/99
[2021-09-23] MEDS ORDERED: ACETAMINOPHEN 325 MG TAB PO ONE (00:01)
== END 2021-09-24 00:01 | disposition left against medical advice (07) ==
LOC: ED 22:42
DX: R06.02 Shortness of breath (principal); Z53.21 Procedure and treatment not carried out due to patient leaving prior to being seen by health care provider